=== PATIENT | female | born 1970 | race Caucasian/White ===

== ENCOUNTER 2020-07-06 07:56 | Outpatient (CLI) | payer OTHER, SELFPAY ==
--- NOTE | ~2020-07-06 | MM_ITS ---
EXAMINATION: MM screening [facility] BI w chelita HISTORY: Screening TECHNIQUE: Craniocaudal and mediolateral oblique 3-D tomosynthesis images were obtained and synthetic 2-D images were generated. CAD analysis was submitted and interpreted. COMPARISON: 10/05/2018 BREAST PARENCHYMAL COMPOSITION: There are scattered areas of fibroglandular density. FINDINGS: There is no evidence of suspicious mass, calcification, or architectural distortion to sugg est malignancy in either breast. There has been no suspicious interval change. IMPRESSION: 1. No mammographic evidence of malignancy. 2. Recommend routine screening mammography in one year. BI-RADS Category 1: Negative Reviewed, dictated and finalized at location A. CE SUPPORT SPECIALIST
== END 2020-07-06 07:57 | disposition home or self-care (01) ==
LOC: CHSIMG 07:59
PROVIDERS: PCP Internal Medicine; Visit Provider Student in an Organized Health Care Education/Training Program
DX: Z12.31 Encounter for screening mammogram for malignant neoplasm of breast (principal)
CPT/HCPCS: 77063; 77067

== ENCOUNTER 2020-10-14 16:55 | Emergency (ER) | payer OTHER, SELFPAY ==
--- NOTE | ~2020-10-14 | XR_ITS ---
EXAMINATION: XR hand LT 2V INDICATION: Left hand pain TECHNIQUE: Two views of the left hand are obtained. COMPARISON: None available FINDINGS: There is no fracture, dislocation, or subluxation. The joint spaces are normal. There is so ft tissue swelling of the second finger. No radiopaque foreign body is identified. IMPRESSION: 1. Soft tissue swelling of the second finger without acute osseous abnormality or radiopaque foreign body identified. Reviewed, dictated and finalized at location A.
[2020-10-14 17:50] VITALS: BP 105/70; PULSE 84; RESP 16; TEMP 37; O2SAT 99
--- NOTE | 2020-10-14 17:59 | ED.GENADULT ---
HPI - General Adult General Chief complaint: Wound/Laceration Stated complaint: cut finger Source: patient Mode of arrival: ambulatory Limitations: no limitations History of Present Illness HPI narrative: Sumaya is a 50F with a PMH of nicotine use that presented to the ED with a laceration on her left 2nd finger. She was preparing dinner when she cut it with a pear of tongs. She had to pull a metal piece out and is having trouble getting the bleeding stopped. No other injuries reported. Related Data Home Medications Medication Instructions Recorded Confirmed No Home Medications 10/14/20 10/14/20 Allergies Allergy/AdvReac Type Severity Reaction Status Date / Time morphine Allergy Unknown Vomiting Verified 04/21/20 08:22 Review of Systems Constitutional: Constitutional: Reports no additional constitutional complaints Eyes: Eyes: Reports no additional eye complaints ENT: Reports system reviewed and no additional complaints, except as documented Cardiovascular: Cardiovascular: Reports no additional cardiovascular complaints Respiratory: Respiratory: Reports no additional respiratory complaints Gastrointestinal: Gastrointestinal: Reports no additional gastrointestinal complaints Genitourinary: Genitourinary: Reports no additional female genitourinary complaints Musculoskeletal: Musculoskeletal: Reports no additional musculoskeletal complaints Integumentary/Breasts: Skin/Breast: Reports system reviewed and no additional complaints, except as docu Neurologic: Reports system reviewed and no additional complaints, except as documented Psychiatric: Psychiatric: Reports no additional psychiatric complaints Endocrine: Endocrine: Reports no additional endocrine complaints Hematologic/Lymphatic: Hematologic/Lymphatic: Reports no additional hematologic/lymphatic complaints Allergic/Immunologic: Allergic/Immunologic: Reports no additional allergic/immunologic complaints [facility] Past Medical History Medical History Vaginal delivery x 2 Surgical History Surgical History History of cholecystectomy History of endometrial ablation History of tooth extraction [place] teeth removed Family History Family History Grandparent Family history of blood dyscrasia Family history of malignant neoplasm of breast in first degree relative Other Diabetes mellitus Family history of arthritis Social History Social History Smoking status: Current every day smoker Second hand tobacco smoke exposure: No Alcohol intake: current Exam Const: General: no acute distress and alert Orientation/consciousness: patient oriented x3 Limitations: No altered mental status HENMT: Head: normal to inspection Other: atraumatic Eyes: Conjunctivae: conjunctivae normal Pupils: Equal, round and reactive pupils present Neck: Neck: normal visual inspection Chest: Chest palpation & inspection: normal inspection of the chest Resp: Effort & Inspection: normal respiratory effort, not labored and not tachypneic Cardio: Rate: regular rate Skin: General skin exam: normal color Other: 0.5 cm laceration on the pad of the index finger on the left hand Neuro: General: patient oriented x3 and moves all extremities Extrem: General: normal to inspection Psych: Mental Status: mental status grossly normal Affect: normal affect Course Vital Signs Vital signs: Vital Signs Temperature 98.6 F 10/14/20 17:50 Pulse Rate 84 10/14/20 17:50 Respiratory Rate 16 10/14/20 17:50 Blood Pressure 105/70 10/14/20 17:50 Pulse Oximetry 99 10/14/20 17:50 Temperature 98.6 F 10/14/20 17:50 Pulse Rate 84 10/14/20 17:50 Respiratory Rate 16 10/14/20 17:50 Blood Pressure 105/70 10/14/20 17:50 Pu
--- NOTE | 2020-10-14 18:12 | PC.NURSE ---
LEFT INDEX FINGER SOAKING IN HIBCLENS AND SALINE AT THIS TIME
[2020-10-14 18:40] VITALS: RESP 15; O2SAT 99
== END 2020-10-14 18:39 | disposition home or self-care (01) ==
PROVIDERS: Emergency Provider Family Medicine; PCP Internal Medicine
DX: S61.211A Laceration without foreign body of left index finger without damage to nail, initial encounter (principal); W45.8XXA Other foreign body or object entering through skin, initial encounter
CPT/HCPCS: 12002; 73120; 99282; 99283

== ENCOUNTER 2023-05-22 10:03 | Outpatient (CLI) | payer BC, SELFPAY ==
--- NOTE | ~2023-05-22 | DEXA_ITS ---
Bone Density Report Name: [place] GARCIA Age: 52 Sex: Female Ethnicity: White Date of : 1970 Indication: postmenopausal; screening for osteoporosis; height loss; Referring Provider: EFRAIN KNOWLES Study: Bone densitometry was performed. Exam Date: May 22, 2023 Accession number: [id number] Bone Density: Region BMD T-score Z-score Classification AP Spine(L1-L4) 1.297 2.3 3.1 Normal Femoral Neck (Left) 0.987 1.2 2.0 Normal Total Hip (Left) 1.194 2.1 2.6 Normal Femoral Neck (Right) 0.981 1.2 2.0 Normal Total Hip (Right) 1.155 1.7 2.2 Normal Femoral Neck Mean 0.984 1.2 2.0 Normal Total Hip Mean 1.175 1.9 2.4 Normal World Health Organization criteria for BMD impression classify patients as: Normal (T-score at or above -1.0), Osteopenia (T-score between -1.0 and -2.5), or Osteoporosis (T-score at or below -2.5). 10-year Fracture Risk: FRAX not reported because: All T-scores for Spine Total, Hip Total, Femoral Neck at or above -1.0 Clinical Information Provided by Patient: Smokes Patient maximum height was 69 Menopause Age: 49 No regular weight bearing exercise Does not regularly consume dairy products Drinks caffeinated beverages Onset of menses at age 14 Number of children 2 Impression: The patient has normal bone mass. The patient has risk factors, including: smoking. Discussion: BONE DENSITY IS ABOVE THE MINIMUM DESIRABLE LEVEL AT ALL SKELETAL SITES TESTED. This patient?s bone mineral density is above the minimum desirable level (T-score -1.0 or better) at all sites measured. The patient should follow a healthful lifestyle (good nutrition with adequate calcium and vitamin D, and appropriate weight-bearing exercise). Follow-Up: Consider repeating this study in 5 years or sooner if there is some new clinical indication. Reported by: Dr. Lg Holder on 05/22/2023 10:35:00 AM. Reviewed, dictated and finalized at location [facility]
--- NOTE | ~2023-05-22 | MM_ITS ---
EXAMINATION: MM screening [facility] BI w chelita HISTORY: Screening mammogram TECHNIQUE: Craniocaudal and mediolateral oblique 3-D tomosynthesis images were obtained and synthetic 2-D images were generated. CAD analysis was submitted and interpreted. COMPARISON: 06/28/2020, 10/05/2018 BREAST PARENCHYMAL COMPOSITION: There are scattered areas of fibroglandular density. FINDINGS: No suspicious mass, calcification, or architectural distortion are identified in either shayan ast to suggest malignancy. There has been no suspicious interval change. IMPRESSION: 1. No mammographic evidence of malignancy. 2. Recommend routine screening mammography in one year. BI-RADS Category 1: Negative Reviewed, dictated and finalized at location A. ATIENT SURGERY RN
== END 2023-05-22 10:04 | disposition home or self-care (01) ==
LOC: CHSIMG 10:03
PROVIDERS: PCP Internal Medicine; Visit Provider Registered Nurse
DX: Z12.31 Encounter for screening mammogram for malignant neoplasm of breast (principal); F17.200 Nicotine dependence, unspecified, uncomplicated; Z78.0 Asymptomatic menopausal state
CPT/HCPCS: 77063; 77067; 77080

== ENCOUNTER 2023-08-09 12:05 | Outpatient (CLI) | payer OTHER, SELFPAY ==
[2023-08-09 12:39] LABS: Hematocrit 44.3 % (37.0-47.0); Hemoglobin 14.2 g/dL (12.0-15.0); Mean Corpuscular HGB Conc 32.1 g/dl (32-36); Mean Corpuscular Hemoglobin 31.8 pg (26-34); Mean Corpuscular Volume 99.1 fl (80-100); Mean Platelet Volume 9.9 fl (7.4-10.4); Platelet Count Result 197 k/mm3 (150-375); Red Blood Count 4.47 M/mm3 (4.2-5.4); Red Cell Distribution Width 13.6 % (11.5-14.5); White Blood Count 8.2 K/mm3 (4.5-10.0)
[2023-08-09 12:48] LABS: Albumin Level 4.1 g/dL (3.5-5.1); Anion Gap 8 mmol/L (8-16); Blood Urea Nitrogen 9 mg/dL (7-17); Calcium 9.1 mg/dL (8.4-10.2); Carbon Dioxide 28 mmol/L (22-30); Chloride 104 mmol/L (98-107); Estimated Glomerular Filt Rate > 60; Glucose 82 mg/dL (65-110); Potassium 4.1 mmol/L (3.4-5.0); Sodium 140 mmol/L (137-145)
[2023-08-09 15:06] LABS: Iron 90 ug/dL (37-170)
[2023-08-09 15:21] LABS: Prealbumin 27.2 mg/dL (17.6-36.0)
== END 2023-08-09 12:06 | disposition home or self-care (01) ==
PROVIDERS: PCP Internal Medicine; Visit Provider Surgery Plastic and Reconstructive Surgery
DX: R63.4 Abnormal weight loss (principal)
CPT/HCPCS: 36415; 80048; 82040; 83540; 84134; 84425; 85027

== ENCOUNTER 2023-11-15 12:34 | Inpatient (IN) | payer BC, SELFPAY ==
--- NOTE | ~2023-11-15 | MR_ITS ---
EXAMINATION: MR MRCP wo/w con/w 3D wo ind DATE: 11/16/2023 07:43 INDICATION: Intractable abdominal pain. TECHNIQUE: Magnetic resonance imaging (MRI) of the abdomen was performed without and with 16 mL Multi Leny intravenous contrast. Sequences included coronal T2-weighted FS FSE, coronal T2-weighted FSE, a xial T1-weighted LAVA, coronal FS FIESTA, axial dual-echo T1-weighted SPGR, coronal lava-FLEX, sagitt al T2-weighted FSE, axial T2-weighted FSE, and axial DWI. Thick-slab T2-weighted FSE images were obta ined for magnetic resonance cholangiopancreatography (MRCP). Maximum intensity projection 3-D reconst ructions of the volumetric data were created by the technologist. Postcontrast sequences included cor onal LAVA-flex and time course of axial T1-weighted LAVA. COMPARISON: Abdomen ultrasound 11/15/2023, CT 11/15/2023, 05/26/2005 FINDINGS: ABDOMEN MRI: There are cysts in the liver measuring up to 12 mm. There is moderate intrahepatic bilia ry duct dilatation. The common duct is dilated to 21 mm, worsened from 17 mm on 05/26/05. The spleen is normal. Pancreas divisum is noted. There is a 4 mm cyst in the head of the pancreas. The adrenal g lands and kidneys are normal. Left kidney are normal. There is a 10 mm cyst in right kidney. There ar e no dilated loops of bowel. There are no pathologically enlarged lymph nodes. There is no free intra peritoneal fluid. ABDOMEN MRCP: There is intrahepatic and extrahepatic bile duct dilatation. No choledocholithiasis. IMPRESSION: 1. Intrahepatic and extrahepatic biliary duct dilatation, mildly worsened from 05/26/2005. No choledo cholithiasis. 2. 4 mm cyst in the pancreas. The differential diagnosis includes pseudocyst, intraductal papillary m ucinous neoplasm (IPMN), mucinous cystic neoplasm (MCN), serous cystadenoma, and neuroendocrine tumor . Consider abdomen MRI without and with contrast in one year. Reviewed, dictated and finalized at location A. IMPRESSION: 1. Intrahepatic and extrahepatic biliary duct dilatation, mildly worsened from 05/26/2005. No choledocholithiasis. 2. 4 mm cyst in the pancreas. The differential diagnosis includes pseudocyst, i ntraductal papillary mucinous neoplasm (IPMN), mucinous cystic neoplasm (MCN), serous cystadenoma, and neuroendocrine tumor. Consider abdomen MRI without and with contrast in one year.
--- NOTE | ~2023-11-15 | CT_ITS ---
EXAMINATION: CTA chest abdomen pelvis DATE: 11/15/2023 13:38 INDICATION: Aortic dissection. TECHNIQUE: Computed tomographic angiography (CTA) of the chest, abdomen, and pelvis was performed wit h 100 mL Omnipaque-350 intravenous contrast. Automated exposure control and iterative reconstruction technique were employed. The dose-length product was 588.84 mGy-cm. Maximum intensity projection 3D-r econstructions of the aorta and other arteries were constructed by the technologist on a separate wor kstation. COMPARISON: CT abdomen and pelvis 05/26/2005 FINDINGS: CHEST CTA: There is mild atelectasis bilaterally. Calcified right lung nodules and calcified right hilar mediast inal lymph nodes are consistent with old granulomatous disease. No pleural effusion. The heart size i s normal. No pericardial effusion. Thoracic aorta is normal. There is severe thoracic spondylosis. ABDOMEN AND PELVIS CTA: There is 11 mm cyst in the liver. There is chronic moderate intrahepatic and extrahepatic biliary jerald t dilatation, likely not clinically significant given the normal liver function tests. The common jerald t measures 19 mm. There are changes of cholecystectomy. Calcifications in the spleen are consistent w ith old granulomatous disease. The pancreas, adrenal glands, and kidneys are normal. There is diverti culosis of the colon without evidence of diverticulitis. There are no dilated loops of bowel. The sathish endix is normal. There is mild aortic atherosclerosis. There is no significant stenosis of celiac axi s, superior mesenteric artery, the renal arteries, or inferior mesenteric artery. There is a 2.9 cm d ominant follicle in left ovary. There is physiologic fluid in the pelvis. There are no pathologically enlarged lymph nodes. There is moderate lumbar spondylosis. IMPRESSION: 1. Mild aortic atherosclerosis. No aneurysm or dissection. Reviewed, dictated and finalized at location A.
--- NOTE | ~2023-11-15 | US_ITS ---
EXAMINATION: US abdomen limited DATE: 11/15/2023 17:45 INDICATION: Epigastric pain post cholecystectomy TECHNIQUE: Multiple grayscale and Doppler ultrasound images of the abdomen were obtained. COMPARISON: CT dated 11/15/2023 FINDINGS: Mild dilation of the main pancreatic duct which measures up to 4 mm at the level of the body the panc reas. The visualized pancreas is otherwise unremarkable. Portions of the pancreatic tail are obscured . Liver has normal echogenicity and contour, with a smooth surface. No liver lesion identified. Again seen is mild intrahepatic biliary ductal dilation.. Portal venous flow was seen in the hepatopetal, normal direction and has normal Doppler waveform. Gallbladder is not visualized and reportedly surgic ally absent. There is prominent dilation of the common bile duct which measures up to 2.4 cm in maxim al diameter which appears to taper distally at the head of the pancreas without evident obstructing m ass or choledocholithiasis. The visualized proximal inferior vena cava is normal. IMPRESSION: 1. Dilation the common bile duct to 2.4 cm with mild intrahepatic biliary ductal dilation likely rela mabel to prior cholecystectomy. 2. Mild dilation of the main pancreatic duct potentially secondary to prior pancreatitis. Instantly n oted is pancreas divisum on the CT imaging. Correlate for history of current or prior pancreatitis. Reviewed, dictated and finalized at location A. IMPRESSION: 1. Dilation the common bile duct to 2.4 cm with mild intrahepatic biliary ducta l dilation likely related to prior cholecystectomy. 2. Mild dilation of the main pancreatic duct potentially secondary to prior torres creatitis. Instantly noted is pancreas divisum on the CT imaging. Correlate for history of current or prior pancreatitis.
[2023-11-15 12:43] LABS: Glucose Point of Care 95 mg/dl (65-105)
--- NOTE | 2023-11-15 12:47 | ECG_ITS ---
SEE SCANNED COPY FOR CONFIRMED REPORT MTDD
[2023-11-15 12:48] VITALS: BP 121/78; PULSE 85; RESP 20; TEMP 36.3; O2SAT 97
--- NOTE | 2023-11-15 12:49 | ED.ABDPAIN ---
HPI - Abdominal Pain General Chief Complaint: Abdominal Pain Stated Complaint: abd pain Time Seen by Provider: 11/15/23 12:40 History of Present Illness HPI narrative: 53-year-old female presented to the emergency department for evaluation of acute onset mid abdominal pain. Patient was at work when she had acute onset midline abdominal pain. Patient denies any radiation of the pain to her chest or back. Patient states he did have similar pain a few months ago. Patient has no prior history of pancreatitis. Patient is not diabetic. Patient does have prior history of cholecystectomy. Related Data Allergies Allergy/AdvReac Type Severity Reaction Status Date / Time morphine Allergy Unknown Vomiting Verified 10/20/23 10:40 Review of Systems Review of Systems: All systems reviewed & are unremarkable except as noted in HPI and below PMFSH Past Medical History Medical History Vaginal delivery x 2 Surgical History Surgical History H/O eye surgery retina surgery History of cholecystectomy History of elective History of endometrial ablation History of tooth extraction History of tubal ligation [place] teeth removed Family History Family History Grandparent Family history of blood dyscrasia Family history of malignant neoplasm of breast in first degree relative Other Diabetes mellitus Family history of arthritis Social History Social History Smoking status: Current every day smoker Tobacco type: cigarettes Second hand tobacco smoke exposure: No Alcohol intake: current Drinks per week: 2 Substance use: never Substance use type: does not use Lack of Transportation: No Lack of Food: Never True Current Housing: I Have Housing Concerned About Future Housing: No Difficulty Paying Gas/Electric Bills: No Difficulty Paying for Meds: No Currently Unemployed: No Difficulty w/ Childcare or Family Care: No Living arrangements: with family Exam Narrative: APPEARANCE: Well appearing, no pain, no distress, well-nourished. HEAD: normocephalic, atraumatic. EYES: PERRLA/EOMI, conjunctivae clear. NOSE: Normal no drainage EARS:TMS clear with good light reflex. THROAT: Pharynx clear, no exudate. NECK: Supple. No adenopathy, no masses. RESPIRATORY: Airway patent, respirations nonlabored. Clear to auscultation bilaterally, no rales, rhonchi, wheezing. CARDIOVASCULAR: Regular rate and rhythm without murmurs rubs or gallops. ABDOMINAL: Epigastric tenderness to palpation MUSCULOSKELETAL: Moves all extremities. Strength/ROM intact, No edema, No calf tenderness. NEURO: Alert. Cranial nerves II through XII intact. Grossly intact SKIN: Warm, dry. Normal Color Course Vital Signs Vital signs: Vital Signs Temperature 97.4 F L 11/15/23 12:48 Pulse Rate 85 11/15/23 12:48 Respiratory Rate 20 11/15/23 12:48 Blood Pressure 121/78 11/15/23 12:48 Pulse Oximetry 97 11/15/23 12:48 Temperature 97.4 F L 11/15/23 12:48 Pulse Rate 82 11/15/23 19:40 Respiratory Rate 17 11/15/23 19:40 Blood Pressure 122/68 11/15/23 19:40 Pulse Oximetry 98 11/15/23 19:40 MDM - Abdominal Pain MDM Narrative Medical decision making narrative: 53-year-old female present to the emergency department for evaluation of intense epigastric pain. Patient was afebrile with no leukocytosis and a stable hemoglobin. Patient's INR is 1.0. Patient had no acute abnormalities on her CMP including normal alk-phos ALT ALT and T bili. Patient's lipase is not elevated. Patient had negative serial troponins. Urine was positive nitrates but otherwise negative. CTA chest abdomen pelvis was ordered to rule out dissection due to the intensity of the patient's pain. No evidence of d
[2023-11-15 12:59] LABS: Basophils Percent Auto 0.3 % (0.2-1.2); Eosinophils Absolute Auto 0.1 K/mm3 (0-0.3); Eosinophils Percent Auto 0.7 % (0-4.4); Hematocrit 39.7 % (37.0-47.0); Hemoglobin 13.4 g/dL (12.0-15.0); Immature Granulocyte Absolute 0.02 K/mm3 (0.00-0.031); Immature Granulocyte Percent A 0.2 % (0-0.5); Lymphocytes Absolute Auto 2.58 K/mm3 (0.9-3.2); Lymphocytes Percent Auto 29.2 % (18.3-44.2); Mean Corpuscular HGB Conc 33.8 g/dl (32-36); Mean Corpuscular Hemoglobin 32.3 pg (26-34); Mean Corpuscular Volume 95.7 fl (80-100); Mean Platelet Volume 9.6 fl (7.4-10.4); Monocytes Absolute Auto 0.7 K/mm3 (0.1-0.6); Monocytes Percent Auto 7.7 % (2.6-8.5); Neutrophils Absolute Auto 5.5 K/mm3 (1.3-6.7); Neutrophils Percent Auto 61.9 % (45.5-73.1); Platelet Count Result 233 k/mm3 (150-375); Red Blood Count 4.15 M/mm3 (4.2-5.4); Red Cell Distribution Width 13.2 % (11.5-14.5); White Blood Count 8.8 K/mm3 (4.5-10.0)
[2023-11-15] MEDS: HYDROmorphone HCL INJ (*CRX) 1 MG/ML SYR IV PUSH ×5 (13:04→23:00)
[2023-11-15] MEDS: PANTOPRAZOLE SODIUM IV 40 MG VIAL IV PUSH (13:04)
[2023-11-15] MEDS: ONDANSETRON INJ 4 MG/2 ML VIAL IV PUSH ×3 (13:04→23:00)
[2023-11-15] MEDS: SODIUM CHLORIDE 0.9% IV 1,000 ML 999 ML IV CONT (13:04)
[2023-11-15 13:09] LABS: Alanine Aminotransferase 19 U/L (6-35); Albumin Level 4.1 g/dL (3.5-5.1); Alkaline Phosphatase 36 U/L (38-126); Anion Gap 7 mmol/L (4-12); Aspartate Amino Transferase 30 U/L (14-36); Bilirubin,Total 0.7 mg/dL (0.2-1.3); Blood Urea Nitrogen 7 mg/dL (7-17); Calcium 8.9 mg/dL (8.4-10.2); Carbon Dioxide 23 mmol/L (22-30); Chloride 106 mmol/L (98-107); Estimated CRCL calculation 80 ml/min; Estimated Glomerular Filt Rate > 60; Glucose 90 mg/dL (65-110); Lipase 86 U/L (23-300); Potassium 3.6 mmol/L (3.4-5.0); Sodium 136 mmol/L (137-145)
[2023-11-15 13:16] LABS: Lactic Acid Reflex 2.4 mmol/L (0.7-2.0); Prothrombin Time 13.4 Seconds (11.1-14.7)
[2023-11-15 13:18] LABS: Partial Thromboplastin Time 26.1 Seconds (22.3-36.8)
[2023-11-15] MEDS: BELLADONNA ALK/PHENOB ELIX 10 ML, MAG HYDROX/ALUMINUM HYD/SIMETH 30 ML, LIDOCAINE HCL 2... PO (14:56)
[2023-11-15] MEDS: METOCLOPRAMIDE HCL INJ 10 MG/2 ML VIAL IV PUSH (15:32)
[2023-11-15 15:41] LABS: Troponin I < 0.012 ng/mL (0.000-0.034)
[2023-11-15 15:56] LABS: Reflex Lactic Acid Yes or No Add Lactic
[2023-11-15 17:11] LABS: Appearance Urine Clear (Clear); Bacteria Urine 4+ /hpf; Bilirubin Urine Negative (Negative); Blood Urine Non-Hemolyzed Trace (Negative); Color Urine Yellow (Yellow); Glucose Urine UA Negative (Negative); Ketones Urine 2+ mg/dL (Negative); Leukocyte Esterase Ur Negative LEU/UL (Negative); Nitrate Urine Positive (Negative); Non Pathogenic Casts 0-2; Protein Urine Negative (Negative); Squamous Epithelial Cell Urine None Seen /hpf (Few); WBC Urine 0-5 /hpf (0-3)
[2023-11-15] MEDS: diphenhydrAMINE HCl INJ 50 MG/ML VIAL 25 MG IV PUSH (17:15)
[2023-11-15 17:16] LABS: Lactic Acid 0.8 mmol/L (0.7-2.0)
[2023-11-15 17:19] LABS: Add Urine Microscopic? YES
--- NOTE | 2023-11-15 19:04 | PM.IMHP ---
H&P: HPI History of Present Illness Date/Time: 11/15/23 19:04 Chief Complaint: Abdominal Pain Narrative: 53 y/o F presents here with abdominal pain with PMH of cholecystectomy (10+ years ago), anxiety, and former smoker. Patient presented here for further evaluation of acute onset of abdominal pain. Pain started around 12:30-1 pm while patient was walking to the restroom. Due to severity of pain, patient collapsed. No LOC or syncope. Patient became diaphoretic and nauseated. Describes the pain as sharp, more in the epigastrium with minimal radiation to the RUQ, constant, varies in intensity, alleviated by tucking her knees to her chest ( position), and no aggravating factors. No prior knowledge of pancreatitis. Patient reports similar pain when she had an ovarian cyst rupture. Reports increased constipation for the past 2 weeks and has had to strain to use the restroom. LBM was 2 days ago, normal color, and hard. Initial VS at presentation: 97.4? F, HR 85, RR 20, 121/78, and 97% on RA. ED workup showed: No leukocytosis, no anemia, no significant electrolyte derangements, creatinine 0.7 and GFR >60, LFTs/total bilirubin/lipase WNL. UA is consistent with UTI. CTA of the chest abdomen pelvis showed mild aortic atherosclerosis. Ultrasound of the abdomen showed dilation the common bile duct and mild dilation of the main pancreatic duct potentially secondary to prior pancreatitis and pancreas divisum. Review of Systems Review of Systems: All systems reviewed & are unremarkable except as noted in HPI and below PMFSH Past Medical History Medical History Anxiety Former smoker History of retinal detachment Vaginal delivery x 2 Surgical History Surgical History H/O eye surgery retina surgery History of bilateral cataract extraction History of cholecystectomy History of elective History of endometrial ablation History of tooth extraction History of tubal ligation [place] teeth removed Family History Family History Grandparent Family history of blood dyscrasia Family history of malignant neoplasm of breast in first degree relative Father Family history of arthritis Mother Family history of arthritis Other Diabetes mellitus Social History Social History Smoking status: Former smoker Tobacco type: cigarettes Second hand tobacco smoke exposure: No Smoking end date: 07/24/23 Alcohol intake: current Drinks per week: 3 Substance use: never Substance use type: does not use Do You Feel Safe in your Home?: Yes Lack of Transportation: No Lack of Food: Never True Current Housing: I Have Housing Concerned About Future Housing: No Difficulty Paying Gas/Electric Bills: No Difficulty Paying for Meds: No Currently Unemployed: No Education: Trade/Vocational Certificate Difficulty w/ Childcare or Family Care: No Living arrangements: with family Spiritual care concerns: No Meds Home Medications and Allergies Home Medications Medication Instructions Recorded Confirmed Type bupropion HCl 200 mg tablet,12 hr 200 mg PO BID #180 tabs 10/20/23 11/15/23 Rx sustained-release (Wellbutrin SR) Allergies Allergy/AdvReac Type Severity Reaction Status Date / Time morphine Allergy Unknown Vomiting Verified 10/20/23 10:40 Vital Signs Vital Signs - 24 hr 11/15/23 12:48 Temperature 97.4 F L Pulse Rate 85 Respiratory Rate 20 Blood Pressure 121/78 Pulse Oximetry 97 Exam Const: General: no acute distress and uncomfortable Other: , female, nontoxic appearance HENMT: Face/Nose/Sinus: Normal nares present Mouth: Yes moist mucous membranes Eyes: General: appearance normal, both eyes and all related structures Scler
[2023-11-15 19:40] VITALS: BP 122/68; PULSE 82; RESP 17; O2SAT 98
--- NOTE | 2023-11-15 20:16 | ADMGEN ---
This patient, Sumaya Rooney, was admitted to Medical Room 260-01. Patient/family oriented to hospital policies and general routines including ID bracelet, bed and alarms, visiting hours, pain management, procedures, bathroom and other care routines, personal items, smoking policy, room service/diet, and visiting hours. Information on how to activate the Rapid Response Team has been discussed. Patient/Family are encouraged to report perceived risks to care and to ask questions if they do not understand what they are told or what they should do.
[2023-11-15 21:00] VITALS: BP 128/63; PULSE 87; RESP 16; TEMP 36.5; O2SAT 98
[2023-11-15 21:12] VITALS: BMI 27.6
[2023-11-15 21:16] VITALS: PULSE 82; RESP 17; O2SAT 98
[2023-11-15] MEDS: SODIUM CHLORIDE 0.9% IV 1,000 ML 125 ML IV CONT (23:00)
[2023-11-16] MEDS: HYDROcodone/acetaminophen (*CRX) 5-325 MG TABLET 1 TAB PO ×3 (03:40→15:56)
[2023-11-16 05:31] LABS: Basophils Percent Auto 0.2 % (0.2-1.2); Eosinophils Absolute Auto 0.1 K/mm3 (0-0.3); Eosinophils Percent Auto 0.6 % (0-4.4); Hemoglobin 10.8 g/dL (12.0-15.0); Immature Granulocyte Absolute 0.02 K/mm3 (0.00-0.031); Immature Granulocyte Percent A 0.2 % (0-0.5); Lymphocytes Absolute Auto 1.24 K/mm3 (0.9-3.2); Lymphocytes Percent Auto 14.6 % (18.3-44.2); Mean Corpuscular HGB Conc 31.8 g/dl (32-36); Mean Corpuscular Hemoglobin 31.7 pg (26-34); Mean Corpuscular Volume 99.7 fl (80-100); Mean Platelet Volume 9.7 fl (7.4-10.4); Monocytes Absolute Auto 0.7 K/mm3 (0.1-0.6); Monocytes Percent Auto 7.6 % (2.6-8.5); Neutrophils Absolute Auto 6.5 K/mm3 (1.3-6.7); Neutrophils Percent Auto 76.8 % (45.5-73.1); Platelet Count Result 149 k/mm3 (150-375); Red Blood Count 3.41 M/mm3 (4.2-5.4); Red Cell Distribution Width 13.2 % (11.5-14.5); White Blood Count 8.5 K/mm3 (4.5-10.0)
[2023-11-16 05:44] LABS: Alanine Aminotransferase 341 U/L (6-35); Albumin Level 2.6 g/dL (3.5-5.1); Alkaline Phosphatase 46 U/L (38-126); Anion Gap 0 mmol/L (4-12); Aspartate Amino Transferase 278 U/L (14-36); Bilirubin,Total 0.7 mg/dL (0.2-1.3); Blood Urea Nitrogen 5 mg/dL (7-17); Calcium 7.2 mg/dL (8.4-10.2); Carbon Dioxide 26 mmol/L (22-30); Chloride 110 mmol/L (98-107); Estimated CRCL calculation 92 ml/min; Estimated Glomerular Filt Rate > 60; Glucose 79 mg/dL (65-110); Potassium 3.4 mmol/L (3.4-5.0); Sodium 136 mmol/L (137-145)
[2023-11-16 06:29] VITALS: BP 104/54; PULSE 67; RESP 14; TEMP 36.4; O2SAT 98
[2023-11-16 08:00] VITALS: O2SAT 96
[2023-11-16] MEDS: DOCUSATE SODIUM 100 MG CAPSULE PO ×2 (08:18→20:41)
--- NOTE | 2023-11-16 08:37 | PM.IMPN ---
Progress Note: A&P Assessment and Plan (1) Abdominal pain: Code(s): R10.9 - Unspecified abdominal pain Status: Acute Assessment and Plan: - CTA of the chest/abd/pelvis: 1. Mild aortic atherosclerosis. No aneurysm or dissection. - US of the abdomen: 1. Dilation the common bile duct to 2.4 cm with mild intrahepatic biliary ductal dilation likely related to prior cholecystectomy. 2. Mild dilation of the main pancreatic duct potentially secondary to prior pancreatitis. Instantly noted is pancreas divisum on the CT imaging. Correlate for history of current or prior pancreatitis. - LFTs, lipase, and total bilirubin WNL - UA consistent with UTI - see below - suspect pain is secondary to pancreas divisum, GI consulted - see below - trend labs - pain control _ GI is following- appreciate recommendations (2) Pancreas divisum: Code(s): Q45.3 - Other congenital malformations of pancreas and pancreatic duct Status: Acute Assessment and Plan: - US of the abdomen: Mild dilation of the main pancreatic duct potentially secondary to prior pancreatitis. Instantly noted is pancreas divisum on the CT imaging. Correlate for history of current or prior pancreatitis. - MRCP - GI consulted- no interventions- f/u outpt - NPO-ice chips ok-advance as tolerated - IV fluids - pain control (3) UTI (urinary tract infection): Code(s): N39.0 - Urinary tract infection, site not specified Status: Acute Assessment and Plan: - UA: Specific gravity 1.06, 2+ ketones, non hemolyzed trace blood, positive nitrates, 3-5 RBCs, 4+ bacteria, no epithelial cells - UC pending, obtained on 11/14 - previous micro reviewed: None on file - started on Ceftriaxone on 11/14 Plan Patient here with acute onset of mid abdominal pain, found to have a pancreas divisum. MRCP ordered. GI consulted-no interventions planned. Continue IV fluids and pain control. Has concurrent UTI, started on ceftriaxone, urine culture pending. docousate for constipation. Diet: NPO GI Prophylaxis: not currently indicated DVT Prophylaxis: SCDs Lines: peripheral Code Status: full code Time Spent With Patient Time with patient: 15 - 25 minutes Subjective Date/time seen: 11/16/23 08:37 Interval history: 53 y/o F presents here with abdominal pain with PMH of cholecystectomy (10+ years ago), anxiety, and former smoker. Patient presented here for further evaluation of acute onset of abdominal pain.? Pain started around 12:30-1 pm while patient was walking to the restroom.? Due to severity of pain, patient collapsed.? No LOC or syncope. Patient became diaphoretic and nauseated.? Describes the pain as sharp, more in the epigastrium with minimal radiation to the RUQ, constant, varies in intensity, alleviated by tucking her knees to her chest ( position), and no aggravating factors.? No prior knowledge of pancreatitis. Patient reports similar pain when she had an ovarian cyst rupture. Reports increased constipation for the past 2 weeks and has had to strain to use the restroom. LBM was 2 days ago, normal color, and hard. ? Initial VS at presentation:? 97.4? F, HR 85, RR 20, 121/78, and 97% on RA. ED workup showed:? No leukocytosis, no anemia, no significant electrolyte derangements, creatinine 0.7 and GFR >60, LFTs/total bilirubin/lipase WNL.? UA is consistent with UTI.? CTA of the chest abdomen pelvis showed mild aortic atherosclerosis.? Ultrasound of the abdomen showed dilation the common bile duct and mild dilation of the main pancreatic duct potentially secondary to prior pancreatitis and pancreas divisum. 11/15- was seen and examined, comfortable. last BM 2 days ago. Saw GI today Review of Systems Review of Systems: All systems reviewed & are unremarkable except as noted in HPI and below Exam Const: General: no acute distress and uncomfortable Other: , female, nontoxic appearance HENMT: Face/Nose/Sinus: Normal nares
[2023-11-16 08:49] VITALS: O2SAT 96
--- NOTE | 2023-11-16 09:46 | P.CONGI_ITS ---
I, Jean Severino MD, have provided a substantive portion of the care of this patient and discussed the patient with my Nurse Practitioner. I have reviewed any new relevant radiographic and laboratory results including medications. I agree with her documentation as noted below.?I personally performed the medical decision making and much of the history and exam for this encounter. briefly here with abdominal pain and constipation, CT scan showed PD, also dilated bile duct but she is post cholecystectomy, lipase normal but noted elevated lft', she just received antibiotic for possible uti. Will monitor liver enzymes, also will need EUS pancreas as outpatient, work up for liver conditions pending Assessment and Plan Assessment and plan (1) Pancreas divisum: Code(s): Q45.3 - Other congenital malformations of pancreas and pancreatic duct Status: Acute (2) Abdominal pain: Qualifiers: Abdominal location: periumbilical Qualified Code(s): R10.33 - Periumbilical pain Code(s): R10.9 - Unspecified abdominal pain Status: Acute (3) Nausea: Code(s): R11.0 - Nausea Status: Acute (4) Pancreatic cyst: Code(s): K86.2 - Cyst of pancreas Status: Acute (5) Liver cyst: Code(s): K76.89 - Other specified diseases of liver Status: Acute (6) Elevated liver transaminase level: Code(s): R74.01 - Elevation of levels of liver transaminase levels Status: Acute (7) Constipation: Qualifiers: Constipation type: unspecified constipation type Qualified Code(s): K59.00 - Constipation, unspecified Code(s): K59.00 - Constipation, unspecified Status: Acute (8) Rectal pain: Code(s): K62.89 - Other specified diseases of anus and rectum Status: Acute Plan 1) Liver and pancreatic cyst/ Pancreatic divisum: CTA showed an 11 mm cyst in the liver, post CCX CBD duct at 19 mm, and chronic moderate intrahepatic and extrahepatic duct dilation Abdominal US showed CBD dilation to 2.4 cm with mild intrahepatic Biliary ductal dilation and mild dilation of the main pancreatic du ct potentially secondary to prior pancreatitis, initially noted as pancreatic divisum on CT imaging. MRCP with liver cysts up to 12 mm, Intra and extrahepatic biliary ductal dilation increased from 17 mm in 2004 to 21 mm and a 4 mm cyst in the pancreas. Patient denies Hx of pancreatitis. Lipase normal at 86. Total bilirubin and Alk Phos have remained normal. Unlikely that these findings are the cause of her abdominal pain. * No indication for endoscopic intervention at this time * patient to follow up outpatient, she will likely need an EUS to further evaluate chronic findings 2) Umbilical abdominal pain/constipation/rectal pain/nausea: S/P CCX > 10 years ago. No prior colonoscopy Hx. Patient admits to acute onset of severe sharp stabbing umbilical abdominal pain that started yesterday, pain Accompanied with nausea but no vomiting. With pain medication her pain has improved but not resolved. Admits to constipation x 2 weeks with large hard stools that cause rectal pain during defecation. Last BM 2-3 days ago. She has tried no OTC medications for her constipation. Imaging with no findings to explain pain. * Start Miralax daily * Simethicone as needed * Patient will need to follow up outpatient for constipation management and colonoscopy * Continue supportive care with pain management and antiemetics * Care with opioids 3) Elevated liver transaminase: LFT's were normal on admission but liver transaminase elevation since admission with t
--- NOTE | 2023-11-16 09:46 | WPDGICN ---
Assessment and Plan Assessment and plan (1) Pancreas divisum: Code(s): Q45.3 - Other congenital malformations of pancreas and pancreatic duct Status: Acute (2) Abdominal pain: Qualifiers: Abdominal location: periumbilical Qualified Code(s): R10.33 - Periumbilical pain Code(s): R10.9 - Unspecified abdominal pain Status: Acute (3) Nausea: Code(s): R11.0 - Nausea Status: Acute (4) Pancreatic cyst: Code(s): K86.2 - Cyst of pancreas Status: Acute (5) Liver cyst: Code(s): K76.89 - Other specified diseases of liver Status: Acute (6) Elevated liver transaminase level: Code(s): R74.01 - Elevation of levels of liver transaminase levels Status: Acute (7) Constipation: Qualifiers: Constipation type: unspecified constipation type Qualified Code(s): K59.00 - Constipation, unspecified Code(s): K59.00 - Constipation, unspecified Status: Acute (8) Rectal pain: Code(s): K62.89 - Other specified diseases of anus and rectum Status: Acute Plan 1) Liver and pancreatic cyst/ Pancreatic divisum: CTA showed an 11 mm cyst in the liver, post CCX CBD duct at 19 mm, and chronic moderate intrahepatic and extrahepatic duct dilation Abdominal US showed CBD dilation to 2.4 cm with mild intrahepatic Biliary ductal dilation and mild dilation of the main pancreatic duct potentially secondary to prior pancreatitis, initially noted as pancreatic divisum on CT imaging. MRCP with liver cysts up to 12 mm, Intra and extrahepatic biliary ductal dilation increased from 17 mm in 2004 to 21 mm and a 4 mm cyst in the pancreas. Patient denies Hx of pancreatitis. Lipase normal at 86. Total bilirubin and Alk Phos have remained normal. Unlikely that these findings are the cause of her abdominal pain. No indication for endoscopic intervention at this time patient to follow up outpatient, she will likely need an EUS to further evaluate chronic findings 2) Umbilical abdominal pain/constipation/rectal pain/nausea: S/P CCX > 10 years ago. No prior colonoscopy Hx. Patient admits to acute onset of severe sharp stabbing umbilical abdominal pain that started yesterday, pain Accompanied with nausea but no vomiting. With pain medication her pain has improved but not resolved. Admits to constipation x 2 weeks with large hard stools that cause rectal pain during defecation. Last BM 2-3 days ago. She has tried no OTC medications for her constipation. Imaging with no findings to explain pain. Start Miralax daily Simethicone as needed Patient will need to follow up outpatient for constipation management and colonoscopy Continue supportive care with pain management and antiemetics Care with opioids 3) Elevated liver transaminase: LFT's were normal on admission but liver transaminase elevation since admission with total bili 0.7, Alk Phos 36-->46, AST 30-->278 and ALT 19-->341. Hepatocellular pattern. Patient was treated with ceftriaxone for UTI. Patient denies any recent change in medication or new medications prior to admission other than bupropion for smoking cessation. DILI vs acute hepatitis vs AIH. Acute hepatitis panel ordered Autoimmune liver labs ordered Continue to monitor LFT's further recs to follow workup Thank you for allowing me to share in the care of this very nice patient. GI Consult Note Consult date/time: 11/16/23 09:46 Reason for consult: Pancreatic divisum and abdominal pain HPI: Sumaya Rooney is a 53 year old female with past medical surgical history of anxiety, cholecystectomy, and tubal ligation. She presented to the ER yesterday with complaints of abdominal pain. GI was consulted for abdominal pain and pancreatic divisum. Patient admits to an acute onset of severe stabbing /sharp pain that started yesterday. The pain was located near her umbilicus. this pain has improved but not resolved wi
[2023-11-16] MEDS: SODIUM CHLORIDE 0.9% IV 1,000 ML 125 ML IV CONT ×2 (10:22→18:17)
[2023-11-16] MEDS: SIMETHICONE 125 MG CHEW TAB PO ×3 (12:50→20:41)
[2023-11-16 13:40] LABS: Hepatitis B Surface Antigen Negative (Negative)
[2023-11-16 13:46] LABS: HAV RESULT Negative (Negative); Hepatitis B Core IgM Result Negative (Negative)
[2023-11-16 13:58] LABS: Hepatitis C Virus Antibody Negative (Negative)
[2023-11-16 14:31] VITALS: BP 110/67; PULSE 79; RESP 16; TEMP 36.1; O2SAT 99
[2023-11-16] MEDS: ACETAMINOPHEN 500 MG TABLET PO (20:40)
[2023-11-16 20:53] VITALS: BP 112/68; PULSE 80; RESP 16; TEMP 36.6; O2SAT 97
[2023-11-16 22:15] VITALS: O2SAT 97
[2023-11-17] MEDS: SODIUM CHLORIDE 0.9% IV 1,000 ML 125 ML IV CONT ×2 (02:30→10:51)
[2023-11-17 06:57] VITALS: BP 109/67; PULSE 81; RESP 18; TEMP 36.6; O2SAT 98
[2023-11-17] MEDS: HYDROcodone/acetaminophen (*CRX) 5-325 MG TABLET 1 TAB PO (08:36)
[2023-11-17] MEDS: SIMETHICONE 125 MG CHEW TAB PO ×3 (08:36→17:19)
[2023-11-17] MEDS: DOCUSATE SODIUM 100 MG CAPSULE PO (08:36)
[2023-11-17] MEDS: polyethylene glycoL 3350 17 GM POWD.PACK PO (08:37)
--- NOTE | 2023-11-17 08:48 | PM.IMPN ---
Progress Note: A&P Assessment and Plan (1) Abdominal pain: Qualifiers: Abdominal location: periumbilical Qualified Code(s): R10.33 - Periumbilical pain Code(s): R10.9 - Unspecified abdominal pain Status: Acute Assessment and Plan: - CTA of the chest/abd/pelvis: 1. Mild aortic atherosclerosis. No aneurysm or dissection. - US of the abdomen: 1. Dilation the common bile duct to 2.4 cm with mild intrahepatic biliary ductal dilation likely related to prior cholecystectomy. 2. Mild dilation of the main pancreatic duct potentially secondary to prior pancreatitis. Instantly noted is pancreas divisum on the CT imaging. Correlate for history of current or prior pancreatitis. - LFTs, lipase, and total bilirubin WNL - UA consistent with UTI - see below - suspect pain is secondary to pancreas divisum, GI consulted - see below - trend labs - pain control _ GI is following- appreciate recommendations (2) Pancreas divisum: Code(s): Q45.3 - Other congenital malformations of pancreas and pancreatic duct Status: Acute Assessment and Plan: - US of the abdomen: Mild dilation of the main pancreatic duct potentially secondary to prior pancreatitis. Instantly noted is pancreas divisum on the CT imaging. Correlate for history of current or prior pancreatitis. - MRCP - GI consulted- no interventions- f/u outpt - NPO-ice chips ok-advance as tolerated - IV fluids - pain control (3) UTI (urinary tract infection): Code(s): N39.0 - Urinary tract infection, site not specified Status: Acute Assessment and Plan: - UA: Specific gravity 1.06, 2+ ketones, non hemolyzed trace blood, positive nitrates, 3-5 RBCs, 4+ bacteria, no epithelial cells - UC gram negative, on ceftriaxone- continue - previous micro reviewed: None on file - on Ceftriaxone since 11/14 Plan Patient here with acute onset of mid abdominal pain, found to have a pancreas divisum. MRCP ordered. GI consulted-no interventions planned. Continue IV fluids and pain control. Has concurrent UTI, started on ceftriaxone, docusate for constipation. Diet: advanced as tolerated GI Prophylaxis: not currently indicated DVT Prophylaxis: SCDs Lines: peripheral Code Status: full code Time Spent With Patient Time with patient: 15 - 25 minutes Subjective Date/time seen: 11/17/23 08:48 Interval history: 53 y/o F presents here with abdominal pain with PMH of cholecystectomy (10+ years ago), anxiety, and former smoker. Patient presented here for further evaluation of acute onset of abdominal pain.? Pain started around 12:30-1 pm while patient was walking to the restroom.? Due to severity of pain, patient collapsed.? No LOC or syncope. Patient became diaphoretic and nauseated.? Describes the pain as sharp, more in the epigastrium with minimal radiation to the RUQ, constant, varies in intensity, alleviated by tucking her knees to her chest ( position), and no aggravating factors.? No prior knowledge of pancreatitis. Patient reports similar pain when she had an ovarian cyst rupture. Reports increased constipation for the past 2 weeks and has had to strain to use the restroom. LBM was 2 days ago, normal color, and hard. ? Initial VS at presentation:? 97.4? F, HR 85, RR 20, 121/78, and 97% on RA. ED workup showed:? No leukocytosis, no anemia, no significant electrolyte derangements, creatinine 0.7 and GFR >60, LFTs/total bilirubin/lipase WNL.? UA is consistent with UTI.? CTA of the chest abdomen pelvis showed mild aortic atherosclerosis.? Ultrasound of the abdomen showed dilation the common bile duct and mild dilation of the main pancreatic duct potentially secondary to prior pancreatitis and pancreas divisum. 11/15- was seen and examined, comfortable. last BM 2 days ago. Saw GI today Review of Systems Review of Systems: All systems reviewed & are unremarkable except as noted in HPI and below Exam Const: General: no acute distres
[2023-11-17 12:42] LABS: Alanine Aminotransferase 223 U/L (6-35); Albumin Level 3.1 g/dL (3.5-5.1); Alkaline Phosphatase 49 U/L (38-126); Anion Gap 0 mmol/L (4-12); Aspartate Amino Transferase 70 U/L (14-36); Bilirubin,Total 0.5 mg/dL (0.2-1.3); Blood Urea Nitrogen 2 mg/dL (7-17); Calcium 8.2 mg/dL (8.4-10.2); Carbon Dioxide 26 mmol/L (22-30); Chloride 110 mmol/L (98-107); Estimated CRCL calculation 92 ml/min; Estimated Glomerular Filt Rate > 60; Glucose 83 mg/dL (65-110); Potassium 3.6 mmol/L (3.4-5.0); Sodium 136 mmol/L (137-145)
[2023-11-17 14:00] VITALS: BP 112/64; PULSE 78; RESP 18; TEMP 36.6; O2SAT 97
--- NOTE | 2023-11-17 15:40 | WPDGIPROGNO ---
Progress Note: A&P Assessment and Plan (1) Abdominal pain: Qualifiers: Abdominal location: periumbilical Qualified Code(s): R10.33 - Periumbilical pain Code(s): R10.9 - Unspecified abdominal pain Status: Acute Assessment and Plan: resolved now, doing much better advance to low fat diet liver enzymes trending down ? etiology will order EUS of pancreas as outpatient given chronic findings (PD, dilated bile duct, 4mm pancreatic cyst) (2) Pancreas divisum: Code(s): Q45.3 - Other congenital malformations of pancreas and pancreatic duct Status: Acute Assessment and Plan: no pancreatitis this time (3) Elevated liver transaminase level: Code(s): R74.01 - Elevation of levels of liver transaminase levels Status: Acute Assessment and Plan: trending down here also with uti and receiving abx (4) Pancreatic cyst: Code(s): K86.2 - Cyst of pancreas Status: Acute (5) Nausea: Code(s): R11.0 - Nausea Status: Acute (6) UTI (urinary tract infection): Code(s): N39.0 - Urinary tract infection, site not specified Status: Acute Assessment and Plan: on abx Subjective Date/time seen: 11/17/23 15:40 Interval history: pain almost gone and doing much better, feeling like going home soon Review of Systems Review of Systems: All systems reviewed & are unremarkable except as noted in HPI and below Exam Const: General: comfortable and no acute distress HENMT: Face/Nose/Sinus: Normal nares present Eyes: General: appearance normal, both eyes and all related structures Neck: Neck: supple Resp: Auscultation: clear to auscultation bilaterally Cardio: Rate: regular rate Rhythm: regular rhythm GI: Inspection: non-distended GI Palp: Yes Soft to palpation and No Tenderness to palpation present (GI) Auscultation: normal bowel sounds Skin: General skin exam: normal color Neuro: Speech: normal speech Motor exam (neuro): 5/5 motor strength present throughout Extrem: General: normal to inspection Psych: Mental Status: mental status grossly normal Objective Data Vital Signs Vital Signs: Vital Signs - 24 hr 11/16/23 20:53 11/16/23 22:15 11/17/23 06:57 Temperature 97.8 F 97.9 F Pulse Rate 80 81 Respiratory Rate 16 18 Blood Pressure 112/68 109/67 Pulse Oximetry 97 97 98 Oxygen Delivery Room Air 11/17/23 08:28 Temperature Pulse Rate Respiratory Rate Blood Pressure Pulse Oximetry Oxygen Delivery Room Air Intake/Output Intake/Output: Intake & Output 11/14/23 11/15/23 11/16/23 11/17/23 23:59 23:59 23:59 23:59 Intake Total 1050 2779.6 3168 Balance 1050 2779.6 3168 Meds/Results Medications: Active Medications Generic Name Dose Route Start Last Admin Trade Name Freq PRN Reason Stop Dose Admin Acetaminophen 500 mg 11/15/23 22:56 11/16/23 20:40 Acetaminophen 500 Mg Tablet PO 500 mg Q4H PRN Administration Mild Pain (1-3) or Fever Hydrocodone Bitart/Acetaminophen 1 tab 11/15/23 22:56 11/17/23 08:36 Hydrocodone/Acetaminophen (*Crx) 5-325 Mg Tablet PO 1 tab Q4H PRN Administration Pain Rated 4-6 Docusate Sodium 100 mg 11/16/23 09:00 11/17/23 08:36 Docusate Sodium 100 Mg Capsule PO 100 mg Q12HR JOSIE Administration Hydromorphone HCl 1 mg 11/15/23 18:57 11/15/23 23:00 Hydromorphone Hcl Inj (*Crx) 1 Mg/Ml Syr IV PUSH 1 mg Q4H PRN Administration Pain Rated 7-10 Sodium Chloride 1,000 mls @ 125 mls/hr 11/15/23 19:00 11/17/23 10:51 Normal Saline Iv IV CONT 125 mls/hr .Q8H JOSIE Administration Ceftriaxone Sodium 1 gm in 50 mls @ 100 mls/hr 11/16/23 19:00 11/16/23 18:45 Rocephin 1 Gm/Ns 50 Ml IVPB Infused Q24H JOSIE Infusion Ondansetron HCl 4 mg 11/15/23 18:57 11/15/23 23:00 Ondansetron Inj 4 Mg/2 Ml Vial IV PUSH 4 mg Q4H PRN Administration Nausea Polyethylene Glycol 17 gm 11/17/23 09:00
--- NOTE | 2023-11-17 15:41 | PM.DS ---
DS: Admitting Diagnosis Discharge Date 11/16 Admitting Diagnosis pancreas, abd pain DS: Discharge Diagnosis Discharge Diagnosis (1) Abdominal pain: Qualifiers: Abdominal location: periumbilical Qualified Code(s): R10.33 - Periumbilical pain Code(s): R10.9 - Unspecified abdominal pain Status: Acute Assessment and Plan: - CTA of the chest/abd/pelvis: 1. Mild aortic atherosclerosis. No aneurysm or dissection. - US of the abdomen: 1. Dilation the common bile duct to 2.4 cm with mild intrahepatic biliary ductal dilation likely related to prior cholecystectomy. 2. Mild dilation of the main pancreatic duct potentially secondary to prior pancreatitis. Instantly noted is pancreas divisum on the CT imaging. Correlate for history of current or prior pancreatitis. - LFTs, lipase, and total bilirubin WNL - UA consistent with UTI - see below - suspect pain is secondary to pancreas divisum, GI consulted - see below - trend labs - pain control _ GI is following- appreciate recommendations:will need EUS pancreas as outpatient, work up for liver conditions pending (2) Pancreas divisum: Code(s): Q45.3 - Other congenital malformations of pancreas and pancreatic duct Status: Acute Assessment and Plan: - US of the abdomen: Mild dilation of the main pancreatic duct potentially secondary to prior pancreatitis. Instantly noted is pancreas divisum on the CT imaging. Correlate for history of current or prior pancreatitis. - MRCP - GI consulted- no interventions- f/u outpt - NPO-ice chips ok-advance as tolerated - IV fluids - pain control (3) UTI (urinary tract infection): Code(s): N39.0 - Urinary tract infection, site not specified Status: Acute Assessment and Plan: - UA: Specific gravity 1.06, 2+ ketones, non hemolyzed trace blood, positive nitrates, 3-5 RBCs, 4+ bacteria, no epithelial cells - UC gram negative, on ceftriaxone- continue - previous micro reviewed: None on file - on Ceftriaxone since 11/14 Plan Patient here with acute onset of mid abdominal pain, found to have a pancreas divisum. MRCP ordered. GI consulted-no interventions planned. Continue IV fluids and pain control. Has concurrent UTI, started on ceftriaxone, docusate for constipation. Diet: advanced as tolerated GI Prophylaxis: not currently indicated DVT Prophylaxis: SCDs Lines: peripheral Code Status: full code DS: Summary Hospital Course Reason for hospitalization: abd pain Hospital Course: Patient presented here for further evaluation of acute onset of abdominal pain.? Pain started around 12:30-1 pm while patient was walking to the restroom.? Due to severity of pain, patient collapsed.? No LOC or syncope. Patient became diaphoretic and nauseated.? Describes the pain as sharp, more in the epigastrium with minimal radiation to the RUQ, constant, varies in intensity, alleviated by tucking her knees to her chest ( position), and no aggravating factors.? No prior knowledge of pancreatitis. Patient reports similar pain when she had an ovarian cyst rupture. Reports increased constipation for the past 2 weeks and has had to strain to use the restroom. LBM was 2 days ago, normal color, and hard. ? Initial VS at presentation:? 97.4? F, HR 85, RR 20, 121/78, and 97% on RA. ED workup showed:? No leukocytosis, no anemia, no significant electrolyte derangements, creatinine 0.7 and GFR >60, LFTs/total bilirubin/lipase WNL.? UA is consistent with UTI.? CTA of the chest abdomen pelvis showed mild aortic atherosclerosis.? Ultrasound of the abdomen showed dilation the common bile duct and mild dilation of the main pancreatic duct potentially secondary to prior pancreatitis and pancreas divisum. Time spent discussing smoking cessation with patient: 3 to 10 minutes Status at Discharge Cognitive/behavioral status at discharge: alert, oriented Functional status at discharge: independent ambulation Overall stat
[2023-11-17 16:27] LABS: EBV Nuclear Ab Antibody >600.00 U/mL; EBV Virus Capsid Ag IgM Ab <36.00 U/mL
[2023-11-20 14:15] LABS: Source BLOOD
[2023-11-22 13:27] LABS: Actin Antibody (IgG) <20 U (<20)
[2023-12-04 00:28] LABS: Mitochondrial (M2) Ab (IgG) <20.0 U
== END 2023-11-17 18:40 | disposition home or self-care (01) | DRG 689 ==
LOC: ANHED 18:55 → ANH2MED 20:05
PROVIDERS: Nurse Practitioner Family; Student in an Organized Health Care Education/Training Program; Admitting Provider Hospitalist; Emergency Provider Emergency Medicine; PCP Internal Medicine; Visit Provider Nurse Practitioner
DX: N39.0 Urinary tract infection, site not specified (principal); K85.90 Acute pancreatitis without necrosis or infection, unspecified; Q45.3 Other congenital malformations of pancreas and pancreatic duct; K86.2 Cyst of pancreas; B96.1 Klebsiella pneumoniae [K. pneumoniae] as the cause of diseases classified elsewhere; K76.89 Other specified diseases of liver; K59.00 Constipation, unspecified; F41.9 Anxiety disorder, unspecified; R74.01 Elevation of levels of liver transaminase levels; Z87.891 Personal history of nicotine dependence; Z98.41 Cataract extraction status, right eye; Z98.42 Cataract extraction status, left eye; Z90.49 Acquired absence of other specified parts of digestive tract
CPT/HCPCS: 36415; 71275; 74174; 74183; 76376; 76705; 80053; 80074; 81001; 82948; 83520; 83605; 83690; 84484; 85025; 85610; 85730; 86038; 86364; 86664; 86665; 87077; 87086; 87088; 87186; 93005; 96361; 96365; 96375; 96376; 99285; A9270; A9577; C9113; G0378; J0696; J1170; J1200; J2405; J2765; J7030; Q9967

== ENCOUNTER 2023-11-21 07:48 | Outpatient (CLI) | payer OTHER, SELFPAY ==
[2023-11-21 09:01] LABS: Albumin Level 3.7 g/dL (3.5-5.1); Anion Gap 6 mmol/L (4-12); Blood Urea Nitrogen 7 mg/dL (7-17); Calcium 9.2 mg/dL (8.4-10.2); Carbon Dioxide 27 mmol/L (22-30); Chloride 104 mmol/L (98-107); Estimated Glomerular Filt Rate > 60; Glucose 88 mg/dL (65-110); Sodium 137 mmol/L (137-145)
[2023-11-21 09:23] LABS: Hemoglobin 12.8 g/dL (12.0-15.0); Mean Corpuscular HGB Conc 32.8 g/dl (32-36); Mean Corpuscular Hemoglobin 32.3 pg (26-34); Mean Corpuscular Volume 98.5 fl (80-100); Mean Platelet Volume 10.2 fl (7.4-10.4); Platelet Count Result 213 k/mm3 (150-375); Red Blood Count 3.96 M/mm3 (4.2-5.4); Red Cell Distribution Width 13.7 % (11.5-14.5); White Blood Count 8.3 K/mm3 (4.5-10.0)
[2023-11-21 12:14] LABS: Prealbumin 23.4 mg/dL (17.6-36.0)
[2023-11-23 07:09] LABS: Vitamin B1 12 nmol/L (8-30)
== END 2023-11-21 07:49 | disposition home or self-care (01) ==
LOC: ANHLAB 07:50
PROVIDERS: PCP Internal Medicine; Visit Provider Surgery Plastic and Reconstructive Surgery
DX: R63.4 Abnormal weight loss (principal)
CPT/HCPCS: 36415; 80048; 82040; 84134; 84425; 85027

== ENCOUNTER 2023-11-23 00:57 | Day surgery (SDC) | payer OTHER, SELFPAY ==
[2023-11-17 10:05] VITALS: BMI 26.6
--- NOTE | 2023-11-17 10:52 | PC.NURSE ---
Report to the Outpatient Waiting Room, entrance under the green pavilion located off [facility], at time _0600_ on date _[id number]_. Planned Procedure Time: _0730_. Time changes happen often and if your time is changed the preop area will call you the afternoon before. - You and your visitor will be asked to self-screen and do not enter if you have any COVID symptoms. - A mask is optional within the hospital at this time. Patients may have clear liquids (water, carbonated beverages, clear teas, apple juice) until 3 hours prior to surgery with a maximum of 20 ounces. - No food from midnight until time of surgery Take the following medications with a SIP of water the morning of surgery: ___Bupropion DO NOT STOP ANY OF YOUR OTHER PRESCRIPTION MEDICATIONS PRIOR TO SURGERY ?EXCEPT THE FOLLOWING Medications to discontinue per physician None Date to take last dose Please no make-up, nail burmese, hairspray, perfume, deodorant, or body powder the day of surgery. No jewelry (including any body piercings) or valuables the day of surgery, leave them at home. Please take a shower or bath the night before, or the morning of, surgery with an antibacterial soap. Wear comfortable, loose fitting clothing. - Jewelry must be removed prior to entering the operating room. Rings and piercings that are not removed may be cut off. - The hospital will not accept responsibility for valuables. - Please leave all valuables, including medications, at home the day of surgery. If you are going home after surgery, a licensed delivery route driver must drive you home. - NO public transportation without another adult if you receive anesthesia. - We recommend that an adult stay with you for 24 hours following discharge. - We also recommend that you do not drive, make important decision, drink alcoholic beverages, or take any drugs that were not prescribed by your health care provider for at least 24 hours after your discharge time. Follow any additional instructions given to you from your surgeon. If you or anyone in your household have experienced Covid symptoms in the past week, please notify your surgeon or the nurse liaison at the phone number below for possible testing. Telephone instructions given to __Sumaya___and asked if any additional questions and then verbalized understanding. Patient advised to call surgeon office or pre surgery nurse liaison [phone] if any additional questions.
[2023-11-23] VITALS (9 sets, daily range): BP systolic 107–120; BP diastolic 52–70; PULSE 80–97; RESP 12–18; TEMP 36.2–37.2; O2SAT 96–100
[2023-11-23] MEDS: LACTATED RINGERS 1,000 ML 30 ML IV CONT ×2 (07:00→09:48)
[2023-11-23 07:08] LABS: Urine Cotinine NEGATIVE
--- NOTE | 2023-11-23 07:08 | P.OP_ITS ---
Procedure Note - Detailed Date of Procedure 11/23/23 Pre-op Diagnosis micromastia, breast ptosis Post-op Diagnosis Same Procedure Performed Bilateral augmentation mastopexy Surgeon Melchor Donaldson MD Anesthesia General Findings Bilateral Inverted T Superior Pedicle Bilateral Lucía Baker SoftTouch 440 cc Right - REF# [id number] SN [id number] Left - REF# [id number] SN [id number] Description of Procedure She is here today for bilateral breast augmentation mastopexy. Previously and again today the risks, benefits, alternatives were discussed in extensive detail. I wanted her to be very realistic about the risks involved as well as expectations. We discussed aftercare and what to monitor for. Made sure answered all of her questions to her satisfaction today and consent was obtained. Marked in the preoperative holding area with their verification. The patient was taken to the operating room placed supine on the operating table. Anesthesia was provided by anesthesiology. A surgical time-out was taken. We cleansed the skin and 1% lidocaine and 0.25% Marcaine with epinephrine was used anesthetize as a field block. She was prepped and draped in a standard sterile fashion. Tegaderm nipple Frias were placed. A 15 blade used to make an incision just superior to the inframammary fold leaving a cusp of de-epithelized tissue at the t junction. Dissection was continued until the chest wall as identified. I incised the pectoralis major along its inferior border and completely released the inferior border leaving the medial border intact. I created a subpectoral pocket in the appropriate dimensions based on our preoperative planning for the implant. I then copiously irrigated with saline solution and verified a strict hemostasis. Next the use a triple antibiotic and Betadine containing solution to irrigate the pocket. I washed my gloves with the triple antibiotic and Betadine solution. We washed the implant immediately upon opening it with this solution and only opened it when we needed it. I used implant funnel and no-touch monique hnique. The implant was introduced into the pocket using the funnel. Having verified positioning of the implant this was closed using 2-0 PDS. I tailor tacked the breast into position. Placed her in a sitting position. Verified the nipple-areolar location based on preoperative planning as well as intraoperative observations and measurements in full agreement. She was placed supine. I de-epithelialized the pedicle. I then removed the inferior central portion of the breast need making sure the implant was well protected. I elevated medial and lateral tissue flaps as well for planned closure. I closed along the IMF with 2-0 Stratafix. Along the vertical with 2-0 PDS. I closed around the areola with 3-0 strata fix. 3-0 Monocryl along the vertical. 3-0 Stratafix along the IMF. I finally closed everything with running subcuticular 4-0 Monocryl and tissue glue. Fluffs and surgical bra were placed. Estimated Blood Loss 30 Drains No Packing No Pathology None sent Complications No immediate complications Condition Stable Disposition PACU
--- NOTE | 2023-11-23 07:08 | WPDHPUPDATE1 ---
History and Physical Update Update Date/Time: 11/23/23 07:08 History and Physical has been reviewed, including an updated exam of the patient. There are NO changes in the patient's condition. Risks, benefits, and alternatives have been discussed and questions answered. Patient agrees to proceed with procedure.
--- NOTE | 2023-11-23 07:12 | WPDANESEPPF ---
Anes - Initial Pre Proc Eval Procedure: Operation Date: 11/23/23 07:30 Proposed Procedures p Bilateral Breast Augmentation - Melchor Donaldson MD s Bilateral Breast Mastopexy - Melchor Donaldson MD Date/Time: 11/23/23 07:12 Surgeon: Melchor Donaldson MD Pre Op Diagnosis: micromastia, breast ptosis Patient Data Age: 53 Gender: F Height: 1.7 m Weight: 77.3 kg Allergies Allergy/AdvReac Type Severity Reaction Status Date / Time morphine Allergy Mild Vomiting Verified 11/17/23 10:05 Home Medications Medication Instructions Recorded Confirmed Type bupropion HCl 200 mg tablet,12 hr 200 mg PO BID #180 tabs 10/20/23 11/17/23 Rx sustained-release (Wellbutrin SR) ciprofloxacin HCl 250 mg tablet 250 mg PO Q12H #6 tabs 11/17/23 Rx (Cipro) docusate sodium 100 mg capsule 100 mg PO Q12HR #30 caps 11/17/23 Rx polyethylene glycol 3350 17 17 g PO DAILY #119 grams 11/17/23 Rx gram/dose oral powder (Miralax) Laboratory Tests 11/23/23 06:13 Cotinine Negative Patient hx anesthesia problems: none Family hx anesthesia problems: none Results Review: All pre-operative results and documents have been reviewed as part of the pre-operative evaluation. [facility] Past Medical History Medical History (Updated 11/17/23 @ 15:44 by Jean Severino MD) Anxiety Dilated bile duct Former smoker History of retinal detachment Vaginal delivery x 2 Surgical History Surgical History H/O eye surgery retina surgery History of bilateral cataract extraction History of cholecystectomy History of elective History of endometrial ablation History of tooth extraction History of tubal ligation [place] teeth removed Family History Family History Grandparent Family history of blood dyscrasia Family history of malignant neoplasm of breast in first degree relative Father Family history of arthritis Mother Family history of arthritis Other Diabetes mellitus Social History Social History Smoking packs per day: 0.75 Smoking cigarettes per day: 15.0 Years smoked: 30 Smoking pack-years: 22.50 Smoking status: Former smoker Tobacco type: cigarettes Second hand tobacco smoke exposure: No Smoking end date: 07/10/23 Alcohol intake: current Drinks per week: 3 Substance use: never Substance use type: does not use Do You Feel Safe in your Home?: Yes Lack of Transportation: No Lack of Food: Never True Current Housing: I Have Housing Concerned About Future Housing: No Difficulty Paying Gas/Electric Bills: No Difficulty Paying for Meds: No Currently Unemployed: No Education: Trade/Vocational Certificate Difficulty w/ Childcare or Family Care: No Living arrangements: with family Spiritual care concerns: No Anes - Eval Final PreProcedure Day of Procedure 11/23/23 07:12 Patient weight: normal Heart: regular rate and rhythm Lungs: clear to auscultation Airway: Mallampati scale class II Neurological: alert and oriented Last oral intake: >/= 8 hours ASA classification: II Emergent: no Anesthetic plan: proceed Anesthesia type and monitoring: general LMA and standard monitoring Results Review: All pre-operative results and documents have been reviewed as part of the pre-operative evaluation. Informed Consent: The patient's anesthetic plan and its attendant risks and benefits were discussed with the patient/family/POA. Questions were solicited and answers provided to the satisfaction of the patient/family/POA.
[2023-11-23] MEDS: LIDO 1%/EPINEPHRINE 1:100,000 50 ML VIAL 30 ML INFILTRATE (07:28)
[2023-11-23] MEDS: BUPivacaine HCL 0.25% PF 30 ML VIAL INFILTRATE (07:28)
[2023-11-23] MEDS: NACL 0.9% IRRIG POUR BOTTLE 900 ML, GENTAMICIN SULFATE INJ 160 MG, ceFAZolin 2 GM, POVI... IRRIGATION (07:28)
[2023-11-23] MEDS: ceFAZolin 2 GM/D5W 50 ML 2 GM/50 ML BAG IVPB (07:38)
[2023-11-23] MEDS: TRANEXAMIC ACID 1,000MG/ISO100 1,000 MG/100 ML BAG 200 MG IVPB (07:44)
[2023-11-23] MEDS: fentaNYL CITRATE INJ (*CRX) 100 MCG/2 ML VIAL 25 MCG IV PUSH ×6 (10:06→10:31)
[2023-11-23] MEDS: oxyCODONE HCL (*CRX) 5 MG TAB IR PO (11:19)
[2023-11-23] MEDS: ARTIFICIAL TEARS OPHTH SOLN 15 ML BOTTLE 1 DROP EACH EYE (11:32)
[2023-11-23] MEDS: PROPARACAINE HCL 0.5% 15 ML OPHTH SOLN 1 DROP EACH EYE (11:32)
[2023-11-23] MEDS: DICLOFENAC SODIUM 0.1% OPHTH SOLN 2.5 ML BOTTLE 1 DROP EACH EYE (11:33)
== END 2023-11-23 12:05 | disposition home or self-care (01) ==
PROVIDERS: PCP Internal Medicine; Visit Provider Surgery Plastic and Reconstructive Surgery
PROC: (CPT 19316; principal; 2023-11-23 07:30)
PROC: (CPT 19316; 2023-11-23 07:30)
DX: Z41.1 Encounter for cosmetic surgery (principal); N64.82 Hypoplasia of breast; N64.81 Ptosis of breast; F41.9 Anxiety disorder, unspecified; Z98.890 Other specified postprocedural states; Z90.49 Acquired absence of other specified parts of digestive tract; Z98.51 Tubal ligation status; Z87.891 Personal history of nicotine dependence; Z80.3 Family history of malignant neoplasm of breast
CPT/HCPCS: 19316; 19325; 80307; A9270; J0171; J0690; J1100; J1170; J1580; J2250; J2371; J2405; J2704; J3010; J7120